=== PATIENT | female | born 1940 | race Caucasian/White ===

== ENCOUNTER 2017-04-17 03:42 | Day surgery (SDC) | payer MEDICARE ==
[~2017-04-17] VITALS: Ht 167.6 cm; Wt 100.0 kg
[2017-04-17] VITALS (10 sets, daily range): BP systolic 105–139; BP diastolic 45–65; PULSE 59–74; RESP 12–21; O2SAT 95–99
[~2017-04-17 03:42] MED LIST: ASPI-973 PO; CALC215T2 PO; CHLORPHENIRAMINE PO; CYAN1TAB19 PO; FERR134T2 PO; GUAI400T57 PO; LEVO25TA5 PO; METO-272 PO; MULT-1018 PO; NITR0.4T6 SL; OMEP20CA11 PO; PROZ20 PO; ROB500 PO; ROPI1TAB3 PO; TRAM50TA2 PO; [UNRECOGNIZED DRUG - CODE] PO
[2017-04-17 10:21] LABS: BASOPHILS % (AUTO) 0.3 % (0-3); EOSINOPHILS % (AUTO) 4.7 % (0-5); MONOCYTES % (AUTO) 9.5 % (4-12); Mean Corpuscular Hemoglobin 32.8 pg (27.0-35.0); Mean Corpuscular Volume 98.2 fL (81-100); NEUTROPHILS % (AUTO) 56.6 % (40-74); Platelet Count 317 bil/L (150-400)
[2017-04-17] MEDS ORDERED: Heparin 1,000 Units/500 mL NS Premix IV ONE (10:29)
[2017-04-17] MEDS ORDERED: Heparin 10,000 Unit/1,000 mL NS Premix IV ONE (10:29)
[2017-04-17 10:37] LABS: INR 0.93 ratio
[2017-04-17] MEDS ORDERED: 0.9% Sodium Chloride 1,000 ML IV SCH (11:00)
[2017-04-17] MEDS ORDERED: fentaNYL-PF 50 mCg/mL 2 mL Inj ONE ×2 (11:05→11:14)
--- NOTE | 2017-04-17 11:19 | NUR ---
Pre heart cath procedure- Patient ambulated to [facility] with cane and accompanied by daughter. Alert and oriented. Denies discomfort other than left hip discomfort which patient says is normal for her. Tylenol given for pain. Patient requested to have a faye catheter placed prior to procedure saying, "I have a weak bladder." Faye inserted without difficulty. NPO since last night except for meds. Reviewed procedure with patient and daughter. Ordered Benadryl dose held because patient says "it hypes me up."
[2017-04-17] MEDS ORDERED: Heparin 1,000 Unit/mL 10 mL Inj ONE (11:22)
--- NOTE | 2017-04-17 13:36 | CS94 ---
[address] [address] DIAGNOSTIC CARDIAC CATHETERIZATION PATIENT: MILAGRO MAHAN : 1940 MR#: [id number] ADMIT: 04/17/2017 JOB ID: [id number] SERVICE DATE: 04/17/2017 PROCEDURE: Right and left heart catheterization. INDICATION: Coronary artery disease. Aortic stenosis. PROCEDURAL DETAILS: The reader and the coders are referred to the procedure log for complete details. Briefly, right femoral approach, 8-Green[place]ic sheath in the right femoral vein, 6-Green[place]ic longer AV sheath in the femoral artery. Dual transducers were used. HEMODYNAMICS: Pulmonary artery pressure was 34/10 with a mean of 20. Pulmonary capillary wedge pressure was a mean of 16. RA pressure was a mean of 3. Cardiac output was 5.85 with Susanna and 5.26 with thermodilution. PA sat was 64. FA sat was 94. LV pressure was 191 with LVEDP of around 20. Aortic pressure was 174/9 giving us a mean gradient of about 20 mm. Valve area was calculated to be 1.12 cm2. CORONARY ANGIOGRAPHY: Revealed: 1. Left main: No significant disease. 2. LAD: Moderate caliber transapical vessel free of any significant disease. 3. Circumflex is codominant. It is free of any significant disease. 4. Right coronary artery is a small caliber vessel free of any significant disease. The right coronary artery is codominant. SUMMARY: This lady does not have any significant epicardial coronary artery disease. Her aortic valve is moderately stenosed. For now, I would recommend continued medical therapy.
--- NOTE | 2017-04-17 15:31 | NUR ---
Discharge- Patient returned to unit post cath. Right groin stable with Star close. No bleeding or hematoma noted. Denies any further discomfort. Hunt cath dc'd and patient up to void in bathroom prior to discharge. Tolerating fluids. Vital signs stable. Discharge to home at 1530 with daughter and personal belongings. Post heart cath info given, and patient verbalized understanding.
== END 2017-04-17 23:59 | disposition home or self-care (01) ==
LOC: SOUO 03:42
PROVIDERS: ATTEND Internal Medicine Cardiovascular Disease
DX: I35.0 Nonrheumatic aortic (valve) stenosis (principal)
CPT/HCPCS: 36415; 80048; 85025; 85610; 93460; 99152; 99153; C1760; C1766; C1769; J1644; J2060; J2250; J3010; J7030; Q9967